=== PATIENT | female | born 1960 | race Caucasian/White ===

== ENCOUNTER 2022-04-03 09:07 | Emergency (ER) | payer BC ==
[2022-04-03] MEDS ORDERED: Octyl 2-Cyanoacrylate 1 g/1 mL 1 APPLIC PEN TOP ONE (11:26)
[2022-04-03 12:41] VITALS: BP 151/82; PULSE 61
== END 2022-04-03 12:39 | disposition home or self-care (01) ==
LOC: MW.ED 09:07
DX: S06.0X0A Concussion without loss of consciousness, initial encounter (principal); S01.21XA Laceration without foreign body of nose, initial encounter; S60.011A Contusion of right thumb without damage to nail, initial encounter; S80.01XA Contusion of right knee, initial encounter; S80.02XA Contusion of left knee, initial encounter; I10 Essential (primary) hypertension; K21.9 Gastro-esophageal reflux disease without esophagitis; Z91.040 Latex allergy status; Z88.2 Allergy status to sulfonamides; Z91.048 Other nonmedicinal substance allergy status; Z88.1 Allergy status to other antibiotic agents; W01.198A Fall on same level from slipping, tripping and stumbling with subsequent striking against other object, initial encounter
CPT/HCPCS: 12011; 70450; 73130; 99284; A9270